=== PATIENT | male | born 1945 | race Caucasian/White ===

== ENCOUNTER 2017-11-15 11:03 | Emergency (ER) | payer OTHER ==
[~2017-11-15] VITALS: Ht 180.3 cm; Wt 115.2 kg
[~2017-11-15 11:03] MED LIST: ASPIR 8181 MG; CLINDAMYCIN HC150 MG PO; COUMADIN 3 MG TA3 M1 PO; COUMADIN 4 MG TA4 M1; FLAGYL500 MG PO; HYDROCODONE-AP1 EAC6 PO; LASIX 40 MG TAB40 M2; LIPITOR 20 MG T20 M1; NITROSTAT0.4 MG; POTASSIUM20; ROPINIROLE HCL5 MG; TENORMIN50 MG; ZOFRAN ODT4 MG PO
[2017-11-15 12:27] VITALS: BP 135/49
== END 2017-11-15 12:27 | disposition home or self-care (01) ==
LOC: M.ERS 11:03
DX: M25.562 Pain in left knee (principal); D16.22 Benign neoplasm of long bones of left lower limb; J44.9 Chronic obstructive pulmonary disease, unspecified